=== PATIENT | male | born 1955 | race Asian ===

== ENCOUNTER 2018-07-19 13:20 | Emergency (ER) | payer OTHER ==
[~2018-07-19] VITALS: Ht 170.2 cm; Wt 77.1 kg
[2018-07-19] MEDS ORDERED: HYDROcodone/Acetamin 7.5/325 tab ORAL ONE (14:30)
--- NOTE | 2018-07-19 16:25 | Diagnostic Imaging Report ---
Indication: Hip and low back pain, status post fall Technique: Noncontrast spiral acquisitions obtained through the pelvis. Multiplanar reconstructions generated. Total dose length product 688.37 mGycm. CTDIvol(s) 13.52,11.63 mGy. Dose reduction achieved using automated exposure control Comparison: none Findings: No acute fractures. No dislocations. There are mild degenerative changes of the sacroiliac joint. There are degenerative changes of the lumbosacral junction. The hip joint spaces are preserved. No significant soft tissue contusion demonstrated. Included pelvic viscera are unremarkable. An eggshell calcification is seen anterior to the rectum Impression: No acute bony pelvic trauma Lumbosacral degenerative changes, as described The CT scanner at [facility] is accredited by the [employer] and the scans are performed using protocols designed to limit radiation exposure to as low as reasonably achievable to attain images of sufficient resolution adequate for diagnostic evaluation.
[2018-07-19 16:40] VITALS: BP 140/84
--- NOTE | 2018-07-19 16:47 | Diagnostic Imaging Report ---
Indications: Back pain status post fall Technique: Spiral acquisitions obtained through the lumbar spine. Multiplanar reconstructions were generated. No IV contrast utilized. Total dose length product 688.37 mGycm. CTDIvol(s) 13.52,11.63 mGy. Dose reduction achieved using automated exposure control Comparison: none Findings: There is a compression fracture of the L2 vertebral body,, involving the superior endplate with slight anterior wedging as well, minimal loss of height anteriorly. Presence of a fracture line suggests acuity. There is very slight superior endplate depression of the L4 vertebral body, as well as possibly a slight fracture line in the superior endplate. The remaining vertebral body heights are preserved. No other evidence of acute fracture. Bony alignment is normal. There is moderate to severe degenerative narrowing of the L5-S1 disc. The remaining disc spaces are preserved. There are anterior and lateral osteophytes at multiple levels. At L4-5, facet arthrosis results in minimal neural foraminal stenosis bilaterally. There is mild circumferential annular bulge which does not significantly impinge upon the spinal canal or thecal sac. At L5-S1, there is mild posterior disc bulge/osteophyte complex which does not result in significant impingement upon the spinal canal. Osteophytes may narrow the right neural foramen slightly. At the remaining disc levels, no significant disc bulge or protrusion, spinal stenosis, or neural foraminal stenosis. The included extraspinal soft tissues are unremarkable. Impression: Positive for compression fracture, likely acute, mostly involving the endplate, of the L2 vertebral body. Mild superior endplate compression fracture, also quite possibly acute, of the L4 vertebral body Multilevel degenerative changes as detailed on a level by level basis above Findings discussed by phone with Dr. Leyva in the emergency room previously The CT scanner at [facility] is accredited by the [employer] and the scans are performed using protocols designed to limit radiation exposure to as low as reasonably achievable to attain images of sufficient resolution adequate for diagnostic evaluation.
[2018-07-19] MEDS ORDERED: NORCO 5-325 TA1 EACH ORAL (16:59)
--- NOTE | 2018-07-19 16:59 | Emergency Room Report ---
History of Present Illness General Chief Complaint: Multiple Trauma/Fall Source: Patient Present Illness HPI 62-year-old male presents to the emergency department complaining of localized 10 out of 10 in severity pain, tenderness and bruising to the low back and tailbone area status post fall from ladder last night. Patient reports he fell from approximately 5 steps off the ground. Patient denies hitting his head, loss of consciousness, midline neck or back pain. Patient reports that his symptoms are progressive he denies paresthesias, urinary retention or incontinence. Denies previous back injuries. Pain is exacerbated with walking or lying directly on back. pt. reports Dizziness or KAPOOR. Allergies: Coded Allergies: No Known Allergies (Unverified , 07/19/18) Patient History Past Medical History: see triage record Past Surgical History: none Pertinent Family History: none Reviewed Nursing Documentation: PMH: Agreed; PSxH: Agreed Review of Systems All Other Systems: negative except mentioned in HPI Physical Exam Vital Signs Date Time Temp Pulse Resp B/P (MAP) Pulse Ox O2 Delivery O2 Flow Rate FiO2 07/19/18 13:24 98.0 84 18 147/71 96 Room Air 98.1 Sp02 EP Interpretation: reviewed, normal General Appearance: alert, GCS 15, non-toxic, moderate distress Head: normocephalic, atraumatic Eyes: bilateral eye normal inspection, bilateral eye PERRL ENT: hearing grossly normal, normal voice Neck: full range of motion, no bony tend Respiratory: chest non-tender, lungs clear, normal breath sounds, speaking full sentences Cardiovascular #1: regular rate, rhythm, normal capillary refill Gastrointestinal: non tender, soft Musculoskeletal: back normal, normal range of motion, tender - TTP to the midline L-spin and Sacrum, moderate ST tenderness Neurologic: alert, oriented x3, responsive, motor strength/tone normal, sensory intact, speech normal, grossly normal Psychiatric: judgement/insight normal Skin: normal color, no rash, warm/dry, well hydrated, other - bruising to lumbosacral area. Medical Decision Making PA Attestation Dr. wallace is my supervising Physician whom patient management has been discussed with. Diagnostic Impression: Primary Impression: Compression fracture of L2 lumbar vertebra Qualified Codes: S32.020A - Wedge compression fracture of second lumbar vertebra, initial encounter for closed fracture Additional Impressions: Compression fracture of L4 lumbar vertebra Qualified Codes: S32.040A - Wedge compression fracture of fourth lumbar vertebra, initial encounter for closed fracture Contusion of back Qualified Codes: S20.229A - Contusion of unspecified back wall of thorax, initial encounter ER Course 62-year-old male presents to the emergency department complaining of localized 10 out of 10 in severity pain, tenderness and bruising to the low back and tailbone area status post fall from ladder last night. Patient reports he fell from approximately 5 steps off the ground. Patient denies hitting his head, loss of consciousness, midline neck or back pain. Patient reports that his symptoms are progressive he denies paresthesias, urinary retention or incontinence. Denies previous back injuries. Pain is exacerbated with walking or lying directly on back. pt. reports Dizziness or KAPOOR. Ddx considered but are not limited to Fracture, dislocation, contusion, Sprain/ Strain/Spasm, Epidural abscess, Neoplastic mets. Vital signs: are WNL, pt. is afebrile H&PE are most consistent with musculoskeletal injury will perform imaging to r/ o fractures/dislocations. ORDERS: CT L- Spine : Compression fractures -CT Pelvis: no acute fractures. ED INTERVENTIONS: - Red Oak PO -- D/w pt. pain management, CT findings, and proper follow up. DISCHARGE: At this time pt. is stable for d/c to home. Will provide printed patient care instructions, and any necessary prescriptions. Care plan and follow up instructions have been discussed with the patient prior to discharge. CT/MRI/US Diagnostic Results CT/MRI/US Diagnostic Results #1: Imaging Test Ordered: CT L- Spine No Contrast Impression " Degenerative changes, compression fracture of L2 and L4" - Per official radiology report- Please see report for specific details. CT/MRI/US Diagnostic Results #2: Imaging Test Ordered: CT Pelvis No Contrast Impression " No acute fractures" Per official radiology report- Please see report for specific details. Last Vital Signs Date Time Temp Pulse Resp B/P (MAP) Pulse Ox O2 Delivery O2 Flow Rate FiO2 07/19/18 16:40 97.9 87 20 140/84 98 Room Air 97.9 Disposition: HOME, SELF-CARE Condition: Stable Scripts Hydrocodone Bit/Acetaminophen 5-325* (NORCO 5-325*) 1 Each Tablet 1 TAB ORAL Q6H PRN for For Pain, #20 TAB 0 Refills Prov: Carla Rogers 07/19/18 Referrals: MERE ECHEVARRIA,REFERRING (PCP) Patient Instructions: Spinal Compression Fracture Additional Instructions: Take medications as directed. Follow up with an MARKETING TECHNOLOGY COORDINATOR in 3-5 days, even if your symptoms have resolved. If symptoms persist MRI may be required at the discretion of your PCP or Ortho Specialist. --Please review list of primary care clinics, if you do not already have a primary care provider who can give you an Orthopedic Referral. Return sooner to ED if new symptoms occur, or current symptoms become worse. Do not drink alcohol, drive, or operate heavy machinery while taking [place] as this may cause drowsiness. - Please note that this Emergency Department Report was dictated using [employer] technology software, occasionally this can lead to erroneous entry secondary to interpretation by the dictation equipment. Carla Rogers Jul 19, 2018 16:59
[2018-07-19 17:08] VITALS: BP 140/84
== END 2018-07-19 17:08 | disposition home or self-care (01) ==
LOC: EMR 13:45
DX: S32.029A Unspecified fracture of second lumbar vertebra, initial encounter for closed fracture (principal); W11.XXXA Fall on and from ladder, initial encounter; Y92.89 Other specified places as the place of occurrence of the external cause; S32.049A Unspecified fracture of fourth lumbar vertebra, initial encounter for closed fracture; Z91.81 History of falling
CPT/HCPCS: 72131; 72192; 99284